=== PATIENT | female | born 1950 | race Caucasian/White ===

== ENCOUNTER 2020-07-08 23:26 | Emergency (ER) | payer MEDICARE, OTHER ==
[~2020-07-08] VITALS: Ht 152.4 cm; Wt 77.0 kg
[2020-07-09] MEDS ORDERED: LIDOCAINE 1%/EPI 1:100,000 10 ML VIAL IJ ONE (00:15)
[2020-07-09] MEDS ORDERED: TETANUS, DIPHTHERIA, PERTUSSIS VAC/PF 0.5ML (>7YR OLD) IM ONE (00:15)
[2020-07-09] MEDS ORDERED: ACETAMINOPHEN 325MG TABLET PO ONE ×2 (01:45→02:45)
[2020-07-09 04:34] VITALS: BP 111/67
== END 2020-07-09 04:36 | disposition home or self-care (01) ==
LOC: ER 23:26
DX: S00.83XA Contusion of other part of head, initial encounter (principal); M54.89 Other dorsalgia; I10 Essential (primary) hypertension; M19.90 Unspecified osteoarthritis, unspecified site; W01.198A Fall on same level from slipping, tripping and stumbling with subsequent striking against other object, initial encounter; Y93.89 Activity, other specified; Y92.89 Other specified places as the place of occurrence of the external cause
CPT/HCPCS: 70450; 71250; 72125; 73502; 93005; 99285; J3490

== ENCOUNTER 2020-07-11 09:56 | Emergency (ER) | payer MEDICARE, OTHER ==
[~2020-07-11] VITALS: Ht 149.9 cm; Wt 70.0 kg
[2020-07-11 09:59] VITALS: BP 155/90
[2020-07-11] MEDS ORDERED: CYCLOBENZAPRINE 10MG TABLET PO ONE (10:15)
== END 2020-07-11 11:05 | disposition home or self-care (01) ==
LOC: ER 10:04
DX: M25.512 Pain in left shoulder (principal); I10 Essential (primary) hypertension
CPT/HCPCS: 73030; 99283